=== PATIENT | female | born 1955 | race Caucasian/White ===

== ENCOUNTER → 2016-05-08 | Outpatient (CLI) | payer BC ==
[~2016-05-08] MED LIST: CALC-20 PO; DICL75TA2 PO; FOLI1TAB7 PO; METH2.5T PO
--- NOTE | 2016-05-08 15:45 | MAMMOGRAPHY REPORT ---
BILATERAL DIGITAL SCREENING MAMMOGRAM WITH CAD: 05/08/2016 CLINICAL HISTORY: Routine screening. Patient has no complaints. TECHNIQUE: Bilateral CC and MLO views were obtained. Current study was also evaluated with a Comput er Aided Detection (CAD) system. COMPARISON: Comparison is made to exams dated: 05/05/2015 mammogram, 05/04/2014 mammogram, 04/30/2013 m ammogram, 04/29/2012 mammogram, 03/28/2011 ultrasound, and 03/20/2010 mammogram - [facility]. BREAST COMPOSITION: The tissue of both breasts is extremely dense, which lowers the sensitivity of mammography. FINDINGS: There are mild bilateral vascular calcifications. Benign coarse calcifications and a stab le metallic biopsy marker in the lower inner anterior left breast. No suspicious mass, architectura l distortion or cluster of microcalcifications is seen. IMPRESSION: ACR BI-RADS CATEGORY 1: NEGATIVE There is no mammographic evidence of malignancy. A 1 year screening mammogram is recommended. The p atient will receive written notification of the results. Approximately 10% of breast cancers are not detected with mammography. A negative mammographic repor t should not delay biopsy if a clinically suggestive mass is present. Jessica López M.D. ay/:05/08/2016 15:38:31 Radio Survey Worker: Bri LIZARRAGA(Ghulam)(Sunday)([place]), [facility] letter sent: Normal 1/2 BI-RADS Code: ACR BI-RADS Category 1: Negative
== END | disposition home or self-care (01) ==
LOC: C.MAMM 15:21
PROVIDERS: ATTEND Obstetrics & Gynecology
DX: Z12.31 Encounter for screening mammogram for malignant neoplasm of breast (principal)

== ENCOUNTER → 2016-06-20 | Outpatient (CLI) | payer BC ==
[2016-06-20 10:54] LABS: BASO ABS # 0.05 K/uL (0-0.2); COMPLETE YES; HEMATOCRIT 42.1 % (37-47); IG% 0.2 %; LYMPH % 19.8 %; LYMPH ABS # 1.01 K/uL (1.2-3.4); MEAN CELL VOLUME 87.7 fL (80-100); MEAN CORPUSCULAR HEMOGLOBIN 29.8 pg (25-34); MEAN PLATELET VOLUME 10.4 fL (7.4-10.4); MONO % 9.2 %; NEUT % 68.8 %; PLATELET COUNT 247 K/uL (130-400)
[2016-06-20 11:02] LABS: ALT/SGPT 21 U/L (12-78); AST/SGOT 16 U/L (15-37); CREATININE 0.94 mg/dl (0.60-1.20)
[2016-06-20 11:04] LABS: ALKALINE PHOSPHATASE 110 U/L (45-117)
== END | disposition home or self-care (01) ==
LOC: C.LAB1850 09:11
PROVIDERS: ATTEND Internal Medicine Rheumatology
DX: M06.9 Rheumatoid arthritis, unspecified (principal); M19.079 Primary osteoarthritis, unspecified ankle and foot; Z51.81 Encounter for therapeutic drug level monitoring; Z79.899 Other long term (current) drug therapy

== ENCOUNTER → 2016-09-06 | Outpatient (CLI) | payer BC ==
[2016-09-06 16:38] LABS: BASO % 0.7 %; BASO ABS # 0.03 K/uL (0-0.2); COMPLETE YES; HEMATOCRIT 43.6 % (37-47); IG% 0.2 %; LYMPH % 28.7 %; LYMPH ABS # 1.18 K/uL (1.2-3.4); MEAN CELL VOLUME 88.3 fL (80-100); MEAN CORPUSCULAR HEMOGLOBIN 28.7 pg (25-34); MEAN CORPUSCULAR HGB CONC 32.6 g/dl (32-36); MEAN PLATELET VOLUME 10.2 fL (7.4-10.4); MONO % 6.8 %; NEUT % 62.6 %; PLATELET COUNT 275 K/uL (130-400); RED BLOOD COUNT 4.94 M/uL (4.2-5.4); WHITE BLOOD COUNT 4.11 K/uL (4.8-10.8)
[2016-09-06 17:05] LABS: ALT/SGPT 22 U/L (12-78); CREATININE 0.84 mg/dl (0.60-1.20)
[2016-09-06 17:08] LABS: ALKALINE PHOSPHATASE 116 U/L (45-117); AST/SGOT 17 U/L (15-37)
== END | disposition home or self-care (01) ==
LOC: C.LAB1850 15:26
PROVIDERS: ATTEND Internal Medicine Rheumatology
DX: M06.9 Rheumatoid arthritis, unspecified (principal); Z79.899 Other long term (current) drug therapy; M54.5 Low back pain

== ENCOUNTER → 2016-12-31 | Outpatient (CLI) | payer BC ==
--- NOTE | 2016-12-31 10:43 | DIAGNOSTIC IMAGING REPORT ---
RIGHT HAND MIN 3 VIEWS ROUTINE CLINICAL HISTORY: Rheumatoid arthritis. COMPARISON: Right hand radiographs December 23, 2013. FINDINGS: Alignment of the right hand is anatomic. There is marked narrowing of the triscaphe articulation. There is moderate narrowing of the radiocarpal reticulation. A small ossific/calcific density along the ulnar styloid is chronic. No fracture or suspicious lesion is present. There may be mild narrowing of the metacarpophalangeal articulations. There is mild joint space narrowing and osteophytosis within several interphalangeal joints consistent with osteoarthritis. IMPRESSION: 1. No significant change since exam of December 23, 2013 with narrowing within the radiocarpal and carpal articulations which may reflect rheumatoid arthritis. 2. Mild osteoarthritis within several interphalangeal joints, as described above. Electronically signed by: Jareth Thompson M.D. 12/31/2016 10:41 AM Dictated Date/Time: 12/31/2016 10:38 AM
--- NOTE | 2016-12-31 10:51 | DIAGNOSTIC IMAGING REPORT ---
LEFT HAND MIN 3 VIEWS ROUTINE CLINICAL HISTORY: Rheumatoid arthritis. COMPARISON: Left hand radiographs December 23, 2013. FINDINGS: There is marked narrowing of the radiocarpal articulation as well as narrowing within the articulations of the left wrist. Lucencies within the left carpal bones and distal left radius and ulna are noted. Associated soft tissue swelling is present. There has been minimal progression since exam of December 23, 2013. No acute fractures identified. There is suspected periarticular osteopenia. IMPRESSION: Minimal progression of marked radiocarpal and carpal joint space narrowing with suspected erosions since exam of December 23, 2013. The findings suggest rheumatoid arthritis. Electronically signed by: Jareth Thompson M.D. 12/31/2016 10:50 AM Dictated Date/Time: 12/31/2016 10:42 AM
== END | disposition home or self-care (01) ==
LOC: C.RAD1850 10:19
PROVIDERS: ATTEND Internal Medicine Rheumatology
DX: M35.00 Sjogren syndrome, unspecified (principal); M05.9 Rheumatoid arthritis with rheumatoid factor, unspecified; M54.5 Low back pain; Z79.899 Other long term (current) drug therapy

== ENCOUNTER → 2016-12-31 | Outpatient (CLI) | payer BC ==
[2016-12-31 16:44] LABS: BASO % 0.4 %; BASO ABS # 0.02 K/uL (0-0.2); COMPLETE YES; EOS % 0.6 %; HEMATOCRIT 43.6 % (37-47); IG% 0.4 %; LYMPH % 27.3 %; LYMPH ABS # 1.28 K/uL (1.2-3.4); MEAN CELL VOLUME 87.7 fL (80-100); MEAN CORPUSCULAR HEMOGLOBIN 29.2 pg (25-34); MEAN CORPUSCULAR HGB CONC 33.3 g/dl (32-36); MEAN PLATELET VOLUME 10.3 fL (7.4-10.4); MONO % 4.9 %; NEUT % 66.4 %; PLATELET COUNT 247 K/uL (130-400); RED BLOOD COUNT 4.97 M/uL (4.2-5.4); WHITE BLOOD COUNT 4.69 K/uL (4.8-10.8)
[2016-12-31 17:13] LABS: ALT/SGPT 26 U/L (12-78); AST/SGOT 20 U/L (15-37); CREATININE 0.82 mg/dl (0.60-1.20)
[2016-12-31 17:18] LABS: ALKALINE PHOSPHATASE 128 U/L (45-117)
[2017-01-04 05:09] LABS: ANTI-CENTROMERE AB <1.0 NEG AI (<1.0 NEG); ANTI-SS-A >8.0 POS AI (<1.0 NEG); ANTI-SS-B 1.8 POS AI (<1.0 NEG); DNA ds CRITHIDIA NEGATIVE (NEGATIVE); Sm Antibody <1.0 NEG AI (<1.0 NEG)
== END | disposition home or self-care (01) ==
LOC: C.LAB1850 15:05
PROVIDERS: ATTEND Internal Medicine Rheumatology
DX: Z51.81 Encounter for therapeutic drug level monitoring (principal); M05.9 Rheumatoid arthritis with rheumatoid factor, unspecified; Z79.899 Other long term (current) drug therapy; M35.00 Sjogren syndrome, unspecified; M54.5 Low back pain

== ENCOUNTER → 2017-06-03 | Outpatient (CLI) | payer OTHER ==
[~2017-06-03] MED LIST changes: -FOLI1TAB7 PO; +FOLI1TAB8 PO
[2017-06-03 16:38] LABS: BASO % 1.2 %; BASO ABS # 0.05 K/uL (0-0.2); EOS % 0.7 %; EOS ABS # 0.03 K/uL (0-0.5); HEMATOCRIT 42.8 % (37-47); HEMOGLOBIN 14.5 g/dL (12.0-16.0); IG# 0.01 K/uL (0.00-0.02); LYMPH % 23.6 %; LYMPH ABS # 1.02 K/uL (1.2-3.4); MEAN CORPUSCULAR HEMOGLOBIN 29.5 pg (25-34); MEAN CORPUSCULAR HGB CONC 33.9 g/dl (32-36); MEAN PLATELET VOLUME 9.6 fL (7.4-10.4); MONO % 6.9 %; NEUT % 67.4 %; NEUT ABS # 2.91 K/uL (1.4-6.5); PLATELET COUNT 239 K/uL (130-400); RED CELL DISTRIBUTION WIDTH CV 13.7 % (11.5-14.5); RED CELL DISTRIBUTION WIDTH SD 43.7 fL (36.4-46.3); WHITE BLOOD COUNT 4.32 K/uL (4.8-10.8)
[2017-06-03 17:10] LABS: ALBUMIN 4.1 gm/dl (3.4-5.0); ALT/SGPT 22 U/L (12-78); CREATININE 0.76 mg/dl (0.60-1.20)
[2017-06-03 17:13] LABS: ALKALINE PHOSPHATASE 106 U/L (45-117); AST/SGOT 20 U/L (15-37)
== END | disposition home or self-care (01) ==
LOC: C.LAB1850 15:15
PROVIDERS: ATTEND Internal Medicine Rheumatology
DX: M35.00 Sjogren syndrome, unspecified (principal); M05.9 Rheumatoid arthritis with rheumatoid factor, unspecified; M54.5 Low back pain; Z79.899 Other long term (current) drug therapy

== ENCOUNTER → 2017-08-06 | Outpatient (CLI) | payer OTHER | END | disposition home or self-care (01) | LOC: C.PAPS 13:22 | PROVIDERS: ATTEND Obstetrics & Gynecology | DX: N95.0 Postmenopausal bleeding (principal) ==